=== PATIENT | female | born 1980 | race African-American/Black ===

== ENCOUNTER 2022-05-18 18:40 | Emergency (ER) | payer OTHER ==
[~2022-05-18] VITALS: Ht 165.1 cm; Wt 90.0 kg
[2022-05-18 20:25] LABS: EOSINOPHILS % 2.5 % (0.0-5.0); HEMATOCRIT. 37.4 % (36.0-48.0); HEMOGLOBIN. 12.8 g/dL (12.0-16.0); LYMPHOCYTES % 34.2 % (20.0-50.0); MEAN CORPUSCULAR HEMOGLOBIN 29.6 pg (28.0-32.0); MEAN CORPUSCULAR VOLUME 86.8 fL (81.0-99.0); MEAN PLATELET VOLUME 8.7 fl (7.4-10.4); MONOCYTES % 10.9 % (2.0-8.0); NEUTROPHILS % 51.4 % (40.0-76.0); PLATELET 253 x1000/uL (130-400); RED BLOOD CELL COUNT 4.31 mill/uL (4.2-5.4); RED CELL DISTRIBUTION WIDTH 13.5 % (11.6-14.6)
[2022-05-18 20:39] LABS: CHLORIDE 106 mEq/L (98-107)
[2022-05-18 20:56] LABS: HCG SCREEN NEGATIVE
[2022-05-19] MEDS ORDERED: TRAMADOL 50MG TABLET PO ONE (02:45)
[2022-05-19] MEDS ORDERED: TRAM50TA3 MT (02:46)
[2022-05-19 03:05] VITALS: BP 142/65
== END 2022-05-19 03:10 | disposition home or self-care (01) ==
LOC: ER 18:40
DX: L76.34 Postprocedural seroma of skin and subcutaneous tissue following other procedure (principal); I49.9 Cardiac arrhythmia, unspecified
CPT/HCPCS: 36415; 71045; 71250; 80053; 81025; 83880; 84484; 84703; 85025; 93005; 99285